=== PATIENT | male | born 1975 | race Asian ===

== ENCOUNTER 2022-02-15 17:59 | Emergency (ER) | payer OTHER ==
[~2022-02-15] VITALS: Ht 170.2 cm; Wt 88.9 kg
[2022-02-15 20:06] VITALS: BP 172/106; TEMP 98
== END 2022-02-15 20:06 | disposition home or self-care (01) ==
LOC: ED 17:59
DX: M79.604 Pain in right leg (principal)
CPT/HCPCS: 96372; 99283; J1885

== ENCOUNTER 2022-03-19 14:35 | Emergency (ER) | payer OTHER ==
[~2022-03-19] VITALS: Ht 170.2 cm; Wt 93.0 kg
[2022-03-19 14:40] VITALS: TEMP 98.5
[2022-03-19 14:45] VITALS: BP 137/91
== END 2022-03-19 15:19 | disposition home or self-care (01) ==
LOC: ED 14:35
PROC: 2W23X4Z Dressing of Abdominal Wall using Bandage (ICD-10-PCS; principal; 2022-03-19)
PROC: 2W2CX4Z Dressing of Right Lower Arm using Bandage (ICD-10-PCS; 2022-03-19)
DX: T21.22XA Burn of second degree of abdominal wall, initial encounter (principal); T22.211A Burn of second degree of right forearm, initial encounter; T31.0 Burns involving less than 10% of body surface; X10.2XXA Contact with fats and cooking oils, initial encounter; Y92.89 Other specified places as the place of occurrence of the external cause
CPT/HCPCS: 90471; 90715; 99283

== ENCOUNTER 2022-04-15 17:03 | Emergency (ER) | payer OTHER ==
[~2022-04-15] VITALS: Ht 170.2 cm; Wt 93.0 kg
[2022-04-15 17:17] VITALS: BP 180/89; TEMP 98.1
== END 2022-04-15 18:55 | disposition home or self-care (01) ==
LOC: ED 17:03 → EDBD 17:03 → ED 18:55
DX: Z53.21 Procedure and treatment not carried out due to patient leaving prior to being seen by health care provider (principal)
CPT/HCPCS: 99281

== ENCOUNTER 2022-07-15 15:39 | Emergency (ER) | payer OTHER ==
[~2022-07-15] VITALS: Ht 170.2 cm; Wt 93.0 kg
[2022-07-15 15:45] VITALS: TEMP 98.2
[2022-07-15 16:30] VITALS: BP 138/92
== END 2022-07-15 16:30 | disposition home or self-care (01) ==
LOC: ED 15:39
DX: L84 Corns and callosities (principal); M21.612 Bunion of left foot
CPT/HCPCS: 99281

== ENCOUNTER 2022-08-01 16:42 | Emergency (ER) | payer OTHER ==
[~2022-08-01] VITALS: Ht 170.2 cm; Wt 90.7 kg
[2022-08-01 17:01] VITALS: BP 181/111; TEMP 99.1
== END 2022-08-01 18:38 | disposition home or self-care (01) ==
LOC: ED 16:42
DX: K02.9 Dental caries, unspecified (principal); K04.7 Periapical abscess without sinus
CPT/HCPCS: 96372; 99283; J1885; J2550

== ENCOUNTER 2022-08-13 01:32 | Emergency (ER) | payer OTHER ==
[~2022-08-13] VITALS: Ht 170.2 cm; Wt 90.7 kg
[2022-08-13 01:40] VITALS: TEMP 98.7
[2022-08-13 02:15] VITALS: BP 152/89
== END 2022-08-13 02:15 | disposition home or self-care (01) ==
LOC: ED 01:32
DX: K08.89 Other specified disorders of teeth and supporting structures (principal)
CPT/HCPCS: 96372; 99282; J1885

== ENCOUNTER 2022-08-26 09:31 | Emergency (ER) | payer OTHER ==
[~2022-08-26] VITALS: Ht 170.2 cm; Wt 90.7 kg
[2022-08-26 09:34] VITALS: BP 142/100; TEMP 97.5
== END 2022-08-26 10:35 | disposition home or self-care (01) ==
LOC: ED 09:31
DX: K02.9 Dental caries, unspecified (principal); I10 Essential (primary) hypertension; Z86.711 Personal history of pulmonary embolism; Z86.718 Personal history of other venous thrombosis and embolism; Z79.01 Long term (current) use of anticoagulants; F17.210 Nicotine dependence, cigarettes, uncomplicated
CPT/HCPCS: 96372; 99283; J0696; J1885

== ENCOUNTER 2022-09-20 10:43 | Emergency (ER) | payer OTHER ==
[~2022-09-20] VITALS: Ht 170.2 cm; Wt 90.7 kg
[2022-09-20 10:47] VITALS: TEMP 98.6
[2022-09-20 11:22] LABS: PLATELET COUNT 304 K/uL (142-355); POTASSIUM 4.3 mmol/L (3.6-5.2)
[2022-09-20 11:31] LABS: PARTIAL THROMBOPLASTIN TIME 23.4 SECONDS (24.5-33.6)
[2022-09-20 15:59] VITALS: BP 167/105
== END 2022-09-20 15:59 | disposition home or self-care (01) ==
LOC: ED 10:43
PROVIDERS: Family Medicine
DX: I82.531 Chronic embolism and thrombosis of right popliteal vein (principal); Z79.01 Long term (current) use of anticoagulants
CPT/HCPCS: 36415; 80048; 85027; 85610; 85730; 99283; J1650; Q9963

== ENCOUNTER 2022-10-18 13:07 | Emergency (ER) | payer OTHER ==
[~2022-10-18] VITALS: Ht 170.2 cm; Wt 92.1 kg
[2022-10-18 13:15] VITALS: TEMP 98.5
[2022-10-18 13:55] VITALS: BP 148/96
== END 2022-10-18 13:55 | disposition home or self-care (01) ==
LOC: ED 13:07
DX: K04.7 Periapical abscess without sinus (principal)
CPT/HCPCS: 99281

== ENCOUNTER 2022-12-01 19:21 | Emergency (ER) | payer BC, OTHER ==
[~2022-12-01] VITALS: Ht 165.1 cm; Wt 92.1 kg
[2022-12-01 19:35] VITALS: BP 140/90; TEMP 97.5
== END 2022-12-01 20:42 | disposition home or self-care (01) ==
LOC: ED 19:21
DX: S86.812A Strain of other muscle(s) and tendon(s) at lower leg level, left leg, initial encounter (principal); S86.811A Strain of other muscle(s) and tendon(s) at lower leg level, right leg, initial encounter; X58.XXXA Exposure to other specified factors, initial encounter
CPT/HCPCS: 99282

== ENCOUNTER 2023-02-05 06:54 | Emergency (ER) | payer BC, OTHER ==
[~2023-02-05] VITALS: Ht 172.7 cm; Wt 97.1 kg
[2023-02-05 07:31] VITALS: BP 170/113; TEMP 98.3
== END 2023-02-05 07:31 | disposition home or self-care (01) ==
LOC: ED 06:54
DX: B02.9 Zoster without complications (principal); K08.89 Other specified disorders of teeth and supporting structures
CPT/HCPCS: 99282